=== PATIENT | female | born 1955 | race Two or more races ===

== ENCOUNTER 2020-05-11 11:13 | Inpatient (IN) | payer OTHER ==
[~2020-05-11] VITALS: Ht 154.9 cm; Wt 58.5 kg
[2020-05-11] MEDS ORDERED: COZAAR50 MG (11:34)
[2020-05-11] MEDS ORDERED: CIPRO500 MG (11:34)
[2020-05-15] MEDS ORDERED: INTESTINEX680 M1 PO (12:22)
[2020-05-15] MEDS ORDERED: CIPRO500 MG PO (12:22)
[2020-05-15] MEDS ORDERED: FLAGYL500MG PO (12:23)
== END 2020-05-15 14:42 | disposition home or self-care (01) | DRG 392 ==
LOC: ER 11:13 → MEDI 19:58
PROVIDERS: ADMIT Internal Medicine; ATTEND Internal Medicine
DX: K57.32 Diverticulitis of large intestine without perforation or abscess without bleeding (principal); I10 Essential (primary) hypertension; E86.0 Dehydration; D64.9 Anemia, unspecified

== ENCOUNTER 2020-07-16 08:24 | Day surgery (SDC) | payer OTHER ==
[~2020-07-16 08:24] MED LIST: CIPRO500 MG; CIPRO500 MG PO; COZAAR50 MG; FLAGYL500MG PO; INTESTINEX680 M1 PO
== END 2020-07-16 15:05 | disposition home or self-care (01) ==
LOC: AMB-ENDOS 08:24
PROVIDERS: ATTEND Surgery
DX: D12.2 Benign neoplasm of ascending colon (principal); Z20.828 Contact with and (suspected) exposure to other viral communicable diseases